=== PATIENT | female | born 1930 | race Two or more races ===

== ENCOUNTER 2017-10-20 10:15 | Outpatient (CLI) | payer OTHER ==
[~2017-10-20 10:15] MED LIST: ALTACE5 M1; AZITHROMYCIN250 MG PO; DOLOGEN CAPLET1 EACH PO; PRAVASTATIN SOD20 MG; XANAX XR0.5 MG
== END 2017-10-20 13:34 | disposition home or self-care (01) ==
LOC: MRI 10:15
DX: M54.5 Low back pain (principal)
CPT/HCPCS: 72148

== ENCOUNTER 2017-10-20 11:41 | Outpatient (CLI) | payer OTHER | END 2017-10-20 13:36 | disposition home or self-care (01) | LOC: RAD 11:41 | DX: M25.551 Pain in right hip (principal); M25.552 Pain in left hip; M54.5 Low back pain; F33.1 Major depressive disorder, recurrent, moderate; F41.1 Generalized anxiety disorder; I11.9 Hypertensive heart disease without heart failure; E78.1 Pure hyperglyceridemia; E88.89 Other specified metabolic disorders; E55.9 Vitamin D deficiency, unspecified; Z12.11 Encounter for screening for malignant neoplasm of colon; Z12.31 Encounter for screening mammogram for malignant neoplasm of breast ==